=== PATIENT | female | born 1980 | race African-American/Black ===

== ENCOUNTER 2018-09-16 18:23 | Emergency (ER) | payer SELFPAY ==
[~2018-09-16] VITALS: Ht 170.2 cm; Wt 63.5 kg
[2018-09-16] MEDS ORDERED: NKM (18:31)
--- NOTE | 2018-09-16 18:53 | NUR ---
ED Nurse Note: PT WALKED IN TO ER TODAY FROM HOME. AOX4. PT C/O GENERALIZED BODY PAIN, 10/10 X TODAY. PT STATES SHE HAS HX OF SICKLE CELL. PT STATES LAST CRISIS WAS IN MAY. PT CRYING AND MOANING IN PAIN BUT VSS.
[2018-09-16 18:54] VITALS: BP 146/90
[2018-09-16] MEDS ORDERED: HYDROmorphone 1mg/ml Carpuject IVP ONE ×2 (19:00→20:00)
--- NOTE | 2018-09-16 19:22 | NUR ---
ED Nurse Note: REPORT GIVEN TO MANDY HUDDLESTON
[2018-09-16 19:41] LABS: MEAN CORPUSCULAR VOLUME 100 FL (80-99); PLATELET COUNT 351 K/UL (150-450); RED CELL DISTRIBUTION WIDTH 20.3 % (11.6-14.8)
[2018-09-16 19:46] LABS: ANION GAP 11 mmol/L (5-15); BLOOD UREA NITROGEN 7 mg/dL (7-18); CARBON DIOXIDE 23 MMOL/L (21-32); CHLORIDE 104 MMOL/L (98-107); CREATININE 0.5 MG/DL (0.55-1.30); POTASSIUM 4.5 MMOL/L (3.5-5.1); SODIUM 138 MMOL/L (136-145); WHITE BLOOD COUNT 22.6 K/UL (4.8-10.8)
[2018-09-16 19:52] LABS: INR 1.1 (0.9-1.1)
[2018-09-16 20:00] LABS: ALANINE AMINOTRANSFERASE 15 U/L (12-78); ALBUMIN 4.3 G/DL (3.4-5.0); ALBUMIN/GLOBULIN RATIO 1.1 (1.0-2.7); ALKALINE PHOSPHATASE 55 U/L (46-116); ASPARTATE AMINO TRANSFERASE 58 U/L (15-37); BILIRUBIN,TOTAL 3.3 MG/DL (0.2-1.0); CKMB < 0.5 NG/ML (0.0-3.6); CREATINE KINASE 93 U/L (26-308)
[2018-09-16 20:01] LABS: BILIRUBIN,DIRECT 0.3 MG/DL (0.0-0.3)
--- NOTE | 2018-09-16 21:01 | NUR ---
ER Nurse Note: Pt a&ox4, VSS, no signs of distress. 2 IV established by AM nurse; patent. RT AC infusing NS; LT hand infusing antibitoics; tolerating well. Pain controlled with Diludad. All orders completed per ERMD orders. Possible DC after antibiotics. All safety measures met; will contiue to mira.
--- NOTE | 2018-09-16 21:28 | Emergency Room Report ---
History of Present Illness General Chief Complaint: Pain Source: Patient Present Illness HPI 38-year-old female presents ED for evaluation. Patient complaining of generalized body pain, chest pain which started today. History of sickle cell. Believe she is having a crisis. States that she is visiting from [place]. Does not have her medications. Pain is sharp, 10 out of 10, nonradiating. Denies shortness of breath. Denies fevers chills. No other aggravating relieving factors. Denies any other associated symptoms Allergies: Coded Allergies: No Known Allergies (Unverified , 09/16/18) Patient History Past Medical History: other - sickle cell Past Surgical History: none Pertinent Family History: none Social History: Denies: smoking, alcohol use, drug use Last Menstrual Period: 09/15/18 Now: No Immunizations: UTD Reviewed Nursing Documentation: PMH: Agreed; PSxH: Agreed Nursing Documentation-PMH Past Medical History: No History, Except For Review of Systems All Other Systems: negative except mentioned in HPI Physical Exam Vital Signs Date Time Temp Pulse Resp B/P (MAP) Pulse Ox O2 Delivery O2 Flow Rate FiO2 09/16/18 18:27 98.2 100 18 135/78 96 Room Air Sp02 EP Interpretation: reviewed, normal General Appearance: alert, GCS 15, non-toxic, mild distress, thin Head: normocephalic, atraumatic Eyes: bilateral eye normal inspection, bilateral eye PERRL ENT: hearing grossly normal, normal pharynx, no angioedema, normal voice Neck: full range of motion, supple/symm/no masses Respiratory: chest non-tender, lungs clear, normal breath sounds, speaking full sentences Cardiovascular #1: regular rate, rhythm, no edema Cardiovascular #2: 2+ carotid (R), 2+ carotid (L), 2+ radial (R), 2+ radial (L) , 2+ dorsalis pedis (R), 2+ dorsalis pedis (L) Gastrointestinal: normal bowel sounds, non tender, soft, non-distended, no guarding, no rebound Rectal: deferred Genitourinary: normal inspection, no CVA tenderness Musculoskeletal: back normal, gait/station normal, normal range of motion, non- tender Neurologic: alert, oriented x3, responsive, motor strength/tone normal, sensory intact, speech normal Psychiatric: judgement/insight normal, memory normal, mood/affect normal, no suicidal/homicidal ideation Reflexes: 3+ bicep (R), 3+ bicep (L), 3+ tricep (R), 3+ tricep (L), 3+ knee (R) , 3+ knee (L) Skin: normal color, no rash, warm/dry, well hydrated Lymphatic: no adenopathy Medical Decision Making Diagnostic Impression: Primary Impression: Sickle-cell disease with pain ER Course Hospital Course 38-year-old F presents ED complaining of generalized body pain, h/o sickle cell Differential diagnoses include: CA/unstable angina, sickle cell crisis, sepsis, UTI, pneumonia Clinical course Patient placed on stretcher. on monitoring manager. After initial history and physical I ordered labs, EKG, chest x-ray, IV fluids, pain medications Labsnoted leukocytosis, hemoglobin 8.0, electrolytes okay, troponins negative, LDH elevated, reticulocyte count elevated EKGnormal sinus rhythm no acute ischemic changes interpreted by me Chest x-rayunremarkable Discussed findings with patient. Patient is visiting from [place]. Does not know her baseline labs other than her hemoglobin which she states is higher than baseline. Patient has negative troponin, normal EKG, normal chest x-ray. She states her pain is controlled. I believe patient be safely discharged to home at this time. Patient agrees. I'll provide prescription for Levaquin and for short course of pain meds. States that she is returning to [place] soon and will follow-up with her PMD Diagnosis - sickle cell pain stable and discharged to home with prescription for Levaquin, [place]. Follow-up with PMD. Return to ED if symptoms recur or worsen Labs Test 09/16/18 19:16 09/16/18 19:40 White Blood Count 22.6 K/UL (4.8-10.8) Red Blood Count 2.20 M/UL (4.20-5.40) Hemoglobin 8.0 G/DL (12.0-16.0) Hematocrit 22.0 % (37.0-47.0) Mean Corpuscular Volume 100 FL (80-99) Mean Corpuscular Hemoglobin 36.2 PG (27.0-31.0) Mean Corpuscular Hemoglobin Concent 36.2 G/DL (32.0-36.0) Red Cell Distribution Width 20.3 % (11.6-14.8) Platelet Count 351 K/UL (150-450) Mean Platelet Volume 5.6 FL (6.5-10.1) Neutrophils (%) (Auto) % (45.0-75.0) Lymphocytes (%) (Auto) % (20.0-45.0) Monocytes (%) (Auto) % (1.0-10.0) Eosinophils (%) (Auto) % (0.0-3.0) Basophils (%) (Auto) % (0.0-2.0) Differential Total Cells Counted 100 Neutrophils % (Manual) 49 % (45-75) Lymphocytes % (Manual) 34 % (20-45) Monocytes % (Manual) 7 % (1-10) Eosinophils % (Manual) 5 % (0-3) Basophils % (Manual) 1 % (0-2) Band Neutrophils 4 % (0-8) Nucleated Red Blood Cells 5 /100 WBC Platelet Estimate Adequate Platelet Morphology Normal Polychromasia 1+ Hypochromasia 2+ Anisocytosis 2+ Macrocytosis 1+ Sickle Cells 1+ Target Cells 1+ Reticulocyte Count 11.2 % (0.0-2.0) Prothrombin Time 11.6 SEC (9.30-11.50) Prothromb Time International Ratio 1.1 (0.9-1.1) Activated Partial Thromboplast Time 21 SEC (23-33) Sodium Level 138 MMOL/L (136-145) Potassium Level 4.5 MMOL/L (3.5-5.1) Chloride Level 104 MMOL/L (98-107) Carbon Dioxide Level 23 MMOL/L (21-32) Anion Gap 11 mmol/L (5-15) Blood Urea Nitrogen 7 mg/dL (7-18) Creatinine 0.5 MG/DL (0.55-1.30) Estimat Glomerular Filtration Rate > 60 mL/min (>60) Glucose Level 85 MG/DL (74-106) Calcium Level 9.0 MG/DL (8.5-10.1) Total Bilirubin 3.3 MG/DL (0.2-1.0) Direct Bilirubin 0.3 MG/DL (0.0-0.3) Aspartate Amino Transf (AST/SGOT) 58 U/L (15-37) Alanine Aminotransferase (ALT/SGPT) 15 U/L (12-78) Alkaline Phosphatase 55 U/L (46-116) Lactate Dehydrogenase 665 U/L (135-225) Total Creatine Kinase 93 U/L (26-308) Creatine Kinase MB < 0.5 NG/ML (0.0-3.6) Creatine Kinase MB Relative Index 0.5 Troponin I 0.000 ng/mL (0.000-0.056) Total Protein 8.3 G/DL (6.4-8.2) Albumin 4.3 G/DL (3.4-5.0) Globulin 4.0 g/dL Albumin/Globulin Ratio 1.1 (1.0-2.7) Urine HCG, Qualitative Negative (NEGATIVE) Urine Opiates Screen Negative (NEGATIVE) Urine Barbiturates Screen Negative (NEGATIVE) Phencyclidine (PCP) Screen Negative (NEGATIVE) Urine Amphetamines Screen Negative (NEGATIVE) Urine Benzodiazepines Screen Negative (NEGATIVE) Urine Cocaine Screen Negative (NEGATIVE) Urine Marijuana (THC) Screen Negative (NEGATIVE) EKG Diagnostic Results Rate: normal Rhythm: NSR ST Segments: no acute changes ASA given to the pt in ED: No Rhythm Strip Diag. Results EP Interpretation: yes Rhythm: NSR, no PVC's, no ectopy Chest X-Ray Diagnostic Results Chest X-Ray Diagnostic Results : Chest X-Ray Ordered: Yes # of Views/Limited/Complete: 1 View Indication: Chest Pain EP Interpretation: Yes Interpretation: no consolidation, no effusion, no pneumothorax, no acute cardiopulmonary disease Impression: No acute disease Electronically Signed by: Electronically signed by Nba Ng MD Last Vital Signs Date Time Temp Pulse Resp B/P (MAP) Pulse Ox O2 Delivery O2 Flow Rate FiO2 09/16/18 20:55 98.4 09/16/18 18:54 95 22 146/90 97 Room Air Status: improved Disposition: HOME, SELF-CARE Condition: Stable Scripts Hydrocodone Bit/Acetaminophen 5-325* (NORCO 5-325*) 1 Each Tablet 1 TAB ORAL Q6H PRN for For Pain, #12 TAB 0 Refills Prov: Nba Ng MD 09/16/18 Levofloxacin* (LEVAQUIN*) 750 Mg Tablet 750 MG ORAL DAILY for 5 Days, TAB Prov: Nba Ng MD 09/16/18 Referrals: NON PHYSICIAN (PCP) Nba Ng MD Sep 16, 2018 21:28
[2018-09-16] MEDS ORDERED: LEVAQUIN750 MG ORAL (21:53)
[2018-09-16] MEDS ORDERED: NORCO 5-325 TA1 EACH ORAL (21:53)
[2018-09-16 22:40] VITALS: BP 138/84
--- NOTE | 2018-09-16 22:40 | NUR ---
ER Nurse Note: Pt seen, treated, medically cleared for discharge by ERMD. Discharge instructions and prescriptions given with repeat verbalizaion by pt. Instructed pt to follow up with primary care physcian within one week. Pt a&ox4, VSS, no signs of distress. All belongings taken, ID band removed, IV removed; site clean and bandaged, left with stable gait, left via own transporation.
--- NOTE | 2018-09-17 09:14 | Diagnostic Imaging Report ---
Indication: Chest pain Technique: One view of the chest Comparison: none Findings: The heart is enlarged. The lungs and pleural spaces are clear. Impression: Cardiomegaly. No acute process
--- NOTE | 2018-09-17 12:25 | Cardiology Report ---
APPROVED REPORT EKG Measurement Heart [id number] Normal sinus rhythm Normal ECG
== END 2018-09-16 22:40 | disposition home or self-care (01) ==
LOC: EMR 19:00
DX: D57.00 Hb-SS disease with crisis, unspecified (principal); D72.829 Elevated white blood cell count, unspecified
CPT/HCPCS: 36415; 71045; 80053; 80307; 81025; 82248; 82550; 82553; 83615; 84484; 85007; 85025; 85044; 85610; 85730; 86850; 86900; 86901; 93005; 96361; 96365; 96375; 96376; 99284; J1170; J1956